=== PATIENT | male | born 1960 | race African-American/Black ===

== ENCOUNTER 2016-12-14 14:25 | Inpatient (IN) | payer OTHER ==
[2016-12-14 15:51] VITALS: BMI 32.1
--- NOTE | 2016-12-14 17:21 | HP ---
CIWA Score - CIWA Score Nausea/Vomitin-Mild Nausea/No Vomiting Muscle Tremors: 4-Moderate,w/Arms Extend Anxiety: 4-Mod. Anxious/Guarded Agitation: 4-Moderately Restless Paroxysmal Sweats: 1-Minimal Palms Moist Orientation: 0-Oriented Tacttile Disturbances: 0-None Auditory Disturbances: 0-None Visual Disturbances: 0-None Headache: 1-Very Mild CIWA-Ar Total Score: 15 Admission ROS S - HPI Chief Complaint: WITHDRAWAL SX Allergies/Adverse Reactions: Allergies Allergy/AdvReac Type Severity Reaction Status Date / Time Penicillins Allergy Severe Rash Verified 12/14/16 16:25 History of Present Illness: 55 YEARS OLD MALE WITH LONG HISTORY OF ALCOHOL COCAINE NICOTINE DEPENDENCE HAS HYPERTENSION, LEFT EYE POOR VISION X 2 YEARS, RIGHT KNEE INJURY X 2008, AMBULATE WITH CANE, DIABETES II AND DEPRESSION IS ADMITTED TO DETOX Exam Limitations: No Limitations - Ebola screening Have you traveled outside of the country in the last 21 days: No Have you had contact with anyone from an Ebola affected area: No Have you been sick,other than usual withdrawal symptoms: No Do you have a fever: No - Review of Systems Constitutional: Changes in sleep, Weight Stable EENT: reports: Blurred Vision (LEFT EYE POOR VISION), Dental Problems (UPPER DENTURE MISSING) Respiratory: reports: No Symptoms reported Cardiac: reports: No Symptoms Reported GI: reports: Nausea, Poor Fluid Intake, Abdominal cramping : reports: No Symptoms Reported Musculoskeletal: reports: Joint Pain (RIGHT KNEE), Muscle Weakness (RIGHT LEG) Integumentary: reports: No Symptoms Reported Neuro: reports: Tremors Endocrine: reports: No Symptoms Reported Hematology: reports: No Symptoms Reported Psychiatric: reports: Judgement Intact, Orientated x3, Anxious, Depressed Other Systems: Reviewed and Negative Patient History - Patient Medical History Hx Anemia: No Hx Asthma: No Hx Chronic Obstructive Pulmonary Disease (COPD): Yes Hx Cancer: No Hx Cardiac Disorders: No Hx Congestive Heart Failure: No Hx Hypertension: Yes Hx Hypercholesterolemia: No Hx Pacemaker: No HX Cerebrovascular Accident: No Hx Seizures: No Hx Dementia: No Hx Diabetes: Yes (Type II) Hx Gastrointestinal Disorders: No Hx Liver Disease: No Hx Genitourinary Disorders: No Hx Sexually Transmitted Disorders: No Hx Renal Disease (ESRD): No Hx Thyroid Disease: No Hx Human Immunodeficiency Virus (HIV): No Hx Hepatitis C: No Hx Depression: Yes Hx Suicide Attempt: No Hx Bipolar Disorder: No Hx Schizophrenia: No - Patient Surgical History Past Surgical History: Yes Hx Neurologic Surgery: No Hx Cataract Extraction: No Hx Cardiac Surgery: No Hx Lung Surgery: No Hx Breast Surgery: No Hx Breast Biopsy: No Hx Abdominal Surgery: No Hx Appendectomy: No Hx Cholecystectomy: No Hx Genitourinary Surgery: No Hx Orthopedic Surgery: Yes (R knee patellar repair.) Other Surgical History: L shoulder sx from [facility] Anesthesia Reaction: No - PPD History Previous Implant?: Yes Documented Results: Negative w/o proof Implanted On Prior [facility] Admission?: No PPD to be Administered?: Yes - Smoking Cessation Smoking history: Current every day smoker Have you smoked in the past 12 months: Yes Aproximately how many cigarettes per day: 20 Cigars Per Day: 0 Hx Chewing Tobacco Use: No Initiated information on smoking cessation: Yes 'Breaking Loose' booklet given: 12/14/16 - Substance & Tx. History Hx Alcohol Use: Yes Hx Substance Use: Yes Substance Use Type: Alcohol, Cocaine Hx Substance Use Treatment: No - Substances Abused Alcohol Route: Oral Frequency: Daily Amount used: FIFTH OF VODKA Age of first use: 16 Date of Last Use: 12/13/16 Cocaine Route: Inhalation Frequency: Daily Amount used: $200 Age of first use: 16 Date of Last Use: 12/13/16 Family Disease History - Family Disease History Family Disease History: Heart Disease: Mother (), Other: Father ( ), Mother, Brother (NO CONTACT), Sister (NO SISTER) Admission Physical Exam S - Vital Signs Vital Signs: Vital Signs - 24 hr 12/14/16 15:47 Temperature 98 F Pulse Rate 90 Respiratory 20 Rate Blood Pressure 163/102 - Physical General Appearance: Yes: Appropriately Dressed, Mild Distress, Obese, Tremorous , Irritable, Sweating, Anxious HEENTM: Yes: Hearing grossly Normal, Normal ENT Inspection, Normocephalic, Normal Voice Respiratory: Yes: Chest Non-Tender, No Respiratory Distress, No Accessory Muscle Use, Hyperresonant Neck: Yes: Supple, Trachea in good position Breast: Yes: Breasts Symetrical Cardiology: Yes: Regular Rhythm, S1, S2, Tachycardia Abdominal: Yes: Non Tender, Soft Genitourinary: Yes: Within Normal Limits Back: Yes: Normal Inspection Musculoskeletal: Yes: full range of Motion, Gait Steady, Muscle Pain (RIGHT KNEE ) Extremities: Yes: Normal Inspection, Non-Tender, Tremors Neurological: Yes: Fully Oriented, Alert, Motor Strength 5/5, Normal Response, Depressed Affect Integumentary: Yes: Warm Lymphatic: Yes: Within Normal Limits - Diagnostic (1) Alcohol dependence with uncomplicated withdrawal Current Visit: Yes Status: Acute (2) Hypertension Current Visit: Yes Status: Chronic Qualifiers: Hypertension type: essential hypertension Qualified Code(s): I10 - Essential (primary) hypertension (3) Blurred vision, left eye Current Visit: Yes Status: Chronic (4) Diabetes mellitus type II, controlled Current Visit: Yes Status: Chronic Qualifiers: Diabetes mellitus complication status: with unspecified complications Diabetes mellitus watermaster insulin use: without watermaster use Qualified Code(s): E11.8 - Type 2 diabetes mellitus with unspecified complications (5) Use of cane as ambulatory aid Current Visit: Yes Status: Chronic (6) Depression (emotion) Current Visit: Yes Status: Suspected Qualifiers: Depression Type: dysthymia Qualified Code(s): F34.1 - Dysthymic disorder (7) Right knee injury Current Visit: Yes Status: Chronic Qualifiers: Encounter type: sequela Qualified Code(s): S89.91XS - Unspecified injury of right lower leg, sequela (8) COPD (chronic obstructive pulmonary disease) Current Visit: Yes Status: Chronic Qualifiers: COPD type: emphysema Emphysema type: unspecified Qualified Code( s): J43.9 - Emphysema, unspecified Cleared for Admission S - Detox or Rehab [facility] Level of Care: Medically Managed Detox Regimen/Protocol: Librium [facility] Breath Alcohol Content Breath Alcohol Content: 0 Urine Drug Screen - Results Drug Screen Negative: No Urine Drug Screen Results: JON-Cocaine
[2016-12-14] MEDS ORDERED: ACETAMINOPHEN 325 MG TABLET (FP) PO PRN (17:26)
[2016-12-14] MEDS ORDERED: IBUPROFEN 400 MG TABLET (FP) PO PRN (17:26)
[2016-12-14] MEDS ORDERED: NICOTINE POLACRILEX 4 MG GUM BC PRN (17:26)
[2016-12-14] MEDS ORDERED: P-EPHED 60MG/TRIPROLIDI 2.5MG TABLET PO PRN (17:26)
[2016-12-14] MEDS ORDERED: MAGNESIUM HYDROX 2400MG/30ML ORAL SUSPENSION 30 ML CUP PO PRN (17:26)
[2016-12-14] MEDS ORDERED: guaiFENesin/D-METHORPHAN HB 10 ML UNIT-DOSE CUPS PO PRN (17:26)
[2016-12-14] MEDS ORDERED: MENTHOL/PHENOL 1 EACH UD MM PRN (17:26)
[2016-12-14] MEDS ORDERED: diphenhydrAMINE HCL 50 MG CAPSULE PO PRN (17:26)
[2016-12-14] MEDS ORDERED: MAGNESIUM CITRATE 300 ML BOTTLE PO PRN (17:26)
[2016-12-14] MEDS ORDERED: hydrOXYzine PAMOATE 50 MG CAPSULE (FP) PO PRN (17:26)
[2016-12-14] MEDS ORDERED: MAG HYDROX/AL HYDROX/SIMETH 30 ML UNIT-DOSE CUP PO PRN (17:26)
[2016-12-14] MEDS ORDERED: LOPERAMIDE HCL 2 MG CAPSULE PO PRN (17:26)
[2016-12-14] MEDS ORDERED: chlordiazePOXIDE HCL 25 MG CAPSULE PO PRN (17:26)
[2016-12-14] MEDS ORDERED: ALBUTEROL SO4 2.5/IPRATROPIUM 0.5 INH SOL 3 ML VIAL.NEB. NEB PRN (17:30)
[2016-12-14] MEDS ORDERED: ALBUTEROL SO4 6.7 GM HFA INHALER IH PRN (17:30)
[2016-12-14] MEDS: RAMIPRIL 5 MG CAPSULE (FP) PO SCH (19:34)
[2016-12-14] MEDS: INSULIN SLIDING SCALE (NOVOLOG) 1 VIAL SQ SCH (22:28)
[2016-12-14] MEDS: THIAMINE HCL 100 MG TABLET (FP) PO SCH (22:28)
[2016-12-14] MEDS: chlordiazePOXIDE HCL 25 MG CAPSULE PO SCH (22:28)
[2016-12-14] MEDS: BUDESONIDE/FORMETEROL FUMARATE 80/4.5 mcg INHALER IH SCH (22:30)
[2016-12-15] MEDS: chlordiazePOXIDE HCL 25 MG CAPSULE PO SCH ×4 (05:44→22:24)
[2016-12-15] MEDS: INSULIN SLIDING SCALE (NOVOLOG) 1 VIAL SQ SCH ×3 (06:25→16:42)
[2016-12-15 09:45] LABS: MCH 26.5 pg (25.7-33.7); MCHC 32.3 g/dl (32.0-35.9); MEAN CELL VOLUME 82.1 fl (80-96); MEAN PLT VOLUME 8.5 fl (7.5-11.1); PLATELET COUNT 184 K/MM3 (134-434); RDW 14.4 % (11.9-15.9); WHITE BLOOD COUNT 5.6 K/mm3 (4.0-10.0)
[2016-12-15 10:03] LABS: ALBUMIN 2.9 g/dl (3.4-5.0); ALK PHOS 92 U/L (45-117); ANION GAP 9 (8-16); BILIRUBIN,TOTAL 0.6 mg/dL (0.2-1.0); CALCIUM 8.7 mg/dL (8.5-10.1); CO2 28 mmol/L (21-32); CREATININE 0.8 mg/dL (0.7-1.3); GLUCOSE,RANDOM 169 mg/dL (74-106); SGOT/AST 31 U/L (15-37); SGPT/ALT 51 U/L (12-78); TOT PROT 5.8 g/dl (6.4-8.2)
--- NOTE | 2016-12-15 10:24 | EKG ---
Test Reason : Blood Pressure : / mmHG Vent. Rate : 087 BPM Atrial Rate : 087 BPM P-R Int : 136 ms QRS Dur : 080 ms QT Int : 378 ms P-R-T Axes : 066 033 047 degrees QTc Int : 454 ms NORMAL SINUS RHYTHM POSSIBLE LEFT ATRIAL ENLARGEMENT BORDERLINE ECG NO PREVIOUS ECGS AVAILABLE Confirmed by MARLENE GARRETT, KB ([id number]) on 12/15/2016 10:23:59 AM Referred By: Devante Vazquez Confirmed By:KB ROSARIO MD
[2016-12-15] MEDS: BUDESONIDE/FORMETEROL FUMARATE 80/4.5 mcg INHALER IH SCH ×2 (10:30→22:23)
[2016-12-15] MEDS: PRENATAL VITAMINS W/ FOLIC ACID TABLET (FP) PO SCH ×2 (10:31→10:47)
[2016-12-15] MEDS: prednisoLONE ACETATE 1% OPHTH SUSP 5 ML BOTTLE OD SCH ×3 (10:32→21:21)
[2016-12-15] MEDS: RAMIPRIL 5 MG CAPSULE (FP) PO SCH ×2 (10:32→10:47)
[2016-12-15] MEDS: NICOTINE 21 MG/24 HOURS TOPICAL PATCH TD SCH ×2 (10:32→10:55)
[2016-12-15] MEDS ORDERED: ARTIFICIAL TEARS (POLYVINYL ALCOHOL 1.4%) OPTH DROPS OU PRN (12:49)
--- NOTE | 2016-12-15 12:57 | PN ---
S CIWA - CIWA Score Nausea/Vomitin-No Nausea/No Vomiting Muscle Tremors: 2 Anxiety: 5 Agitation: 4-Moderately Restless Paroxysmal Sweats: 3 Orientation: 0-Oriented Tacttile Disturbances: 3-Moderate Itch/Numb/Burn Auditory Disturbances: 0-None Visual Disturbances: 0-None Headache: 3-Moderate CIWA-Ar Total Score: 20 S Progress Note (SOAP) Subjective: Body Aches, Anxious, H/A, Sweating, Fatigue. Objective: PT. A & O X 3, OBSERVED AMBULATING ON UNIT. NO ACUTE DISTRESS. PT. DENIES CHEST PAIN. 12/15/16 12:53 Vital Signs Temperature 96.9 F L 12/15/16 10:42 Pulse Rate 74 12/15/16 10:42 Respiratory Rate 18 12/15/16 10:42 Blood Pressure 158/94 12/15/16 10:42 O2 Sat by Pulse Oximetry (%) Laboratory Tests 12/14/16 12/15/16 12/15/16 21:35 05:46 07:00 WBC 5.6 RBC 5.43 Hgb 14.4 Hct 44.6 MCV 82.1 MCH 26.5 MCHC 32.3 RDW 14.4 Plt Count 184 MPV 8.5 Sodium Potassium Chloride Carbon Dioxide Anion Gap BUN Creatinine Creat Clearance w eGFR POC Glucometer 132 143 Random Glucose Calcium Total Bilirubin AST ALT Alkaline Phosphatase Total Protein Albumin RPR Titer 12/15/16 12/15/16 12/15/16 07:00 07:00 10:54 WBC RBC Hgb Hct MCV MCH MCHC RDW Plt Count MPV Sodium 140 Potassium 3.6 Chloride 103 Carbon Dioxide 28 Anion Gap 9 BUN 14 Creatinine 0.8 Creat Clearance w eGFR > 60 POC Glucometer 172 Random Glucose 169 H Calcium 8.7 Total Bilirubin 0.6 AST 31 ALT 51 Alkaline Phosphatase 92 Total Protein 5.8 L Albumin 2.9 L RPR Titer Nonreactive LABS NOTED. UA RESULTS PENDING. 12/15/16 12:56 Assessment: 12/15/16 12:54 WITHDRAWAL SYMPTOMS. Plan: CONTINUE DETOX. PER PHARMACIST (DAIJA Puga) AT PATIENT'S PHARMACY ([facility], [place] , [place] PATIENT PRESCRIBED ATROPINE 1 % SOLUTION EYE DROPS, 1 DROP TO LEFT EYE DAILY IN ADDITION TO PREDNISOLONE 1 % DROPS. PATIENT ALSO PRESCRIBED AMLODIPINE , 5 MG PO DAILY. BOTH MEDICATIONS ORDERED.
--- NOTE | 2016-12-15 14:22 | CONSULT ---
[facility] Psychiatric Consult - Data Date of interview: 12/15/16 Admission source: [facility] Identifying data: Patient is approached,at bedside,for psychiatric evaluation.Found to be hostile and resistive to care." I don't want to talk to psychiatrists or nobody (sic).Leave me alone." Nursing staff is made aware.
[2016-12-15] MEDS: amLODIPine BESYLATE 5 MG TABLET (FP) PO SCH (15:23)
[2016-12-15] MEDS: ATROPINE SO4 1% OPHTH SOLN 5 ML BOTTLE OS SCH ×2 (21:21→22:47)
[2016-12-15] MEDS: THIAMINE HCL 100 MG TABLET (FP) PO SCH (22:23)
[2016-12-16] MEDS: chlordiazePOXIDE HCL 25 MG CAPSULE PO SCH ×3 (06:21→17:48)
[2016-12-16] MEDS: INSULIN SLIDING SCALE (NOVOLOG) 1 VIAL SQ SCH ×2 (06:59→17:50)
[2016-12-16] MEDS: amLODIPine BESYLATE 5 MG TABLET (FP) PO SCH (09:27)
[2016-12-16] MEDS: PRENATAL VITAMINS W/ FOLIC ACID TABLET (FP) PO SCH (09:27)
[2016-12-16] MEDS: RAMIPRIL 5 MG CAPSULE (FP) PO SCH (09:27)
[2016-12-16] MEDS: ATROPINE SO4 1% OPHTH SOLN 5 ML BOTTLE OS SCH (09:28)
[2016-12-16] MEDS: prednisoLONE ACETATE 1% OPHTH SUSP 5 ML BOTTLE OD SCH ×2 (09:28→22:34)
[2016-12-16] MEDS: NICOTINE 21 MG/24 HOURS TOPICAL PATCH TD SCH (09:30)
[2016-12-16] MEDS: BUDESONIDE/FORMETEROL FUMARATE 80/4.5 mcg INHALER IH SCH ×3 (10:09→22:56)
--- NOTE | 2016-12-16 13:08 | PN ---
[facility] CIWA - CIWA Score Nausea/Vomitin-No Nausea/No Vomiting Muscle Tremors: 3 Anxiety: 5 Agitation: 4-Moderately Restless Paroxysmal Sweats: No Perspiration Orientation: 0-Oriented Tacttile Disturbances: 3-Moderate Itch/Numb/Burn Auditory Disturbances: 0-None Visual Disturbances: 0-None Headache: 3-Moderate CIWA-Ar Total Score: 18 [facility] Progress Note (SOAP) Subjective: Body Aches, Anxious, H/A, Interrupted sleep. Objective: PT. A & O X 3, OBSERVED AMBULATING ON UNIT. NO ACUTE DISTRESS. PT. DENIES CHEST PAIN. 12/16/16 13:05 Vital Signs Temperature 97.5 F L 12/16/16 10:20 Pulse Rate 78 12/16/16 10:20 Respiratory Rate 18 12/16/16 10:20 Blood Pressure 161/87 12/16/16 10:20 O2 Sat by Pulse Oximetry (%) Laboratory Tests 12/14/16 12/14/16 12/15/16 16:40 21:35 05:46 WBC RBC Hgb Hct MCV MCH MCHC RDW Plt Count MPV Sodium Potassium Chloride Carbon Dioxide Anion Gap BUN Creatinine Creat Clearance w eGFR POC Glucometer 135 132 143 Random Glucose Calcium Total Bilirubin AST ALT Alkaline Phosphatase Total Protein Albumin RPR Titer 12/15/16 12/15/16 12/15/16 07:00 07:00 07:00 WBC 5.6 RBC 5.43 Hgb 14.4 Hct 44.6 MCV 82.1 MCH 26.5 MCHC 32.3 RDW 14.4 Plt Count 184 MPV 8.5 Sodium 140 Potassium 3.6 Chloride 103 Carbon Dioxide 28 Anion Gap 9 BUN 14 Creatinine 0.8 Creat Clearance w eGFR > 60 POC Glucometer Random Glucose 169 H Calcium 8.7 Total Bilirubin 0.6 AST 31 ALT 51 Alkaline Phosphatase 92 Total Protein 5.8 L Albumin 2.9 L RPR Titer Nonreactive 12/15/16 10:54 WBC RBC Hgb Hct MCV MCH MCHC RDW Plt Count MPV Sodium Potassium Chloride Carbon Dioxide Anion Gap BUN Creatinine Creat Clearance w eGFR POC Glucometer 172 Random Glucose Calcium Total Bilirubin AST ALT Alkaline Phosphatase Total Protein Albumin RPR Titer LABS NOTED. UA RESULTS PENDING. 12/16/16 13:10 Assessment: 12/16/16 13:06 WITHDRAWAL SYMPTOMS. Plan: CONTINUE DETOX.
[2016-12-16] MEDS ORDERED: INSULIN (NOVOLOG) ASPART 100 UNITS/ML 10ML VIAL ONE (17:04)
[2016-12-16] MEDS: THIAMINE HCL 100 MG TABLET (FP) PO SCH (22:34)
[2016-12-16] MEDS: chlordiazePOXIDE 5 MG CAPSULE PO SCH (22:34)
[2016-12-17] MEDS: INSULIN SLIDING SCALE (NOVOLOG) 1 VIAL SQ SCH ×2 (06:11→17:39)
[2016-12-17] MEDS: chlordiazePOXIDE 5 MG CAPSULE PO SCH ×3 (06:11→17:39)
[2016-12-17] MEDS ORDERED: ATROPINE SO4 1% OPHTH SOLN 5 ML BOTTLE OS SCH (07:00)
[2016-12-17] MEDS: amLODIPine BESYLATE 5 MG TABLET (FP) PO SCH (10:29)
[2016-12-17] MEDS: prednisoLONE ACETATE 1% OPHTH SUSP 5 ML BOTTLE OD SCH ×2 (10:29→23:15)
[2016-12-17] MEDS: PRENATAL VITAMINS W/ FOLIC ACID TABLET (FP) PO SCH (10:30)
[2016-12-17] MEDS: RAMIPRIL 5 MG CAPSULE (FP) PO SCH (10:30)
[2016-12-17] MEDS: BUDESONIDE/FORMETEROL FUMARATE 80/4.5 mcg INHALER IH SCH ×2 (10:31→23:10)
[2016-12-17] MEDS: NICOTINE 21 MG/24 HOURS TOPICAL PATCH TD SCH (10:31)
[2016-12-17] MEDS ORDERED: amLODIPine BESYLATE 5 MG TABLET (FP) PO ONE (11:44)
--- NOTE | 2016-12-17 11:47 | PN ---
[facility] Progress Note (SOAP) Subjective: Body Aches, Anxious, Sweating. Objective: PT. A & O X 3, OBSERVED AMBULATING ON UNIT. NO ACUTE DISTRESS. 12/17/16 11:42 Vital Signs Temperature 98.2 F 12/17/16 11:18 Pulse Rate 85 12/17/16 11:18 Respiratory Rate 18 12/17/16 11:18 Blood Pressure 161/72 12/17/16 11:18 O2 Sat by Pulse Oximetry (%) Laboratory Tests 12/14/16 12/14/16 12/15/16 16:40 21:35 05:46 WBC RBC Hgb Hct MCV MCH MCHC RDW Plt Count MPV Sodium Potassium Chloride Carbon Dioxide Anion Gap BUN Creatinine Creat Clearance w eGFR POC Glucometer 135 132 143 Random Glucose Calcium Total Bilirubin AST ALT Alkaline Phosphatase Total Protein Albumin RPR Titer 12/15/16 12/15/16 12/15/16 07:00 07:00 07:00 WBC 5.6 RBC 5.43 Hgb 14.4 Hct 44.6 MCV 82.1 MCH 26.5 MCHC 32.3 RDW 14.4 Plt Count 184 MPV 8.5 Sodium 140 Potassium 3.6 Chloride 103 Carbon Dioxide 28 Anion Gap 9 BUN 14 Creatinine 0.8 Creat Clearance w eGFR > 60 POC Glucometer Random Glucose 169 H Calcium 8.7 Total Bilirubin 0.6 AST 31 ALT 51 Alkaline Phosphatase 92 Total Protein 5.8 L Albumin 2.9 L RPR Titer Nonreactive 12/15/16 12/16/16 10:54 16:24 WBC RBC Hgb Hct MCV MCH MCHC RDW Plt Count MPV Sodium Potassium Chloride Carbon Dioxide Anion Gap BUN Creatinine Creat Clearance w eGFR POC Glucometer 172 207 Random Glucose Calcium Total Bilirubin AST ALT Alkaline Phosphatase Total Protein Albumin RPR Titer LABS NOTED. UA RESULTS PENDING. 12/17/16 11:45 Assessment: 12/17/16 11:43 WITHDRAWAL SYMPTOMS. Plan: CONTINUE DETOX. AMLODIPINE, 5 MG PO X 1 NOW. INCREASE DAILY AMLODIPINE DOSE TO 10 MG PO DAILY.
[2016-12-17 22:18] VITALS: BP 137/79; PULSE 97; TEMP 98.8
[2016-12-17] MEDS: THIAMINE HCL 100 MG TABLET (FP) PO SCH (23:10)
[2016-12-17] MEDS: chlordiazePOXIDE HCL 10 MG CAPSULE PO SCH (23:10)
[2016-12-18] MEDS ORDERED: ATROPINE SO4 1% OPHTH SOLN 5 ML BOTTLE OS SCH (06:00)
[2016-12-18] MEDS: chlordiazePOXIDE HCL 10 MG CAPSULE PO SCH ×2 (06:33→10:09)
[2016-12-18] MEDS: INSULIN SLIDING SCALE (NOVOLOG) 1 VIAL SQ SCH (06:35)
[2016-12-18] MEDS: prednisoLONE ACETATE 1% OPHTH SUSP 5 ML BOTTLE OD SCH (08:28)
[2016-12-18] MEDS ORDERED: amLODIPine BESYLATE 10 MG TABLET (FP) PO SCH (10:00)
[2016-12-18] MEDS: RAMIPRIL 5 MG CAPSULE (FP) PO SCH (10:08)
[2016-12-18] MEDS: NICOTINE 21 MG/24 HOURS TOPICAL PATCH TD SCH (10:09)
[2016-12-18] MEDS: BUDESONIDE/FORMETEROL FUMARATE 80/4.5 mcg INHALER IH SCH (10:09)
[2016-12-18] MEDS: PRENATAL VITAMINS W/ FOLIC ACID TABLET (FP) PO SCH (10:09)
--- NOTE | 2016-12-18 20:34 | DS ---
[facility] Detox Discharge Summary Admission Date: 12/14/16 Discharge Date: 12/18/16 - History Present History: Alcohol Dependence Additional Comments: PT. ADVISED TO FOLLOW-UP WITH OUTPATIENT 12-STEP / AA SUPPORT GROUP PROGRAM FOR AFTER CARE. PATIENT ADVISED TO FOLLOW-UP WITH HIS OPTHALMOLOGIST AT [facility] (PT. UNABLE TO RECALL OPTHALMOLOGIST'S NAME AT THIS TIME) FOR HISTORY OF EYE DISORDER AFFECTING LEFT EYE. PATIENT WAS DISCHARGED FROM DETOX UNIT IN STABLE MEDICAL CONDITION. Pertinent Past History: COPD (Emphysema), History of Left Eye Disorder, HTN, Type II DM, Use of Cane as Ambulatory Aid, History of Right Knee Injury. - Physical Exam Results Vital Signs: Vital Signs Temperature 98.8 F 12/17/16 22: Pulse Rate 97 H 12/17/16 22: Respiratory Rate 18 12/18/16 00:30 Blood Pressure 137/79 12/17/16 22:17 O2 Sat by Pulse Oximetry (%) Pertinent Admission Physical Exam Findings: WITHDRAWAL SYMPTOMS. Laboratory Tests 12/14/16 12/14/16 12/15/16 16:40 21:35 05:46 WBC RBC Hgb Hct MCV MCH MCHC RDW Plt Count MPV Sodium Potassium Chloride Carbon Dioxide Anion Gap BUN Creatinine Creat Clearance w eGFR POC Glucometer 135 132 143 Random Glucose Calcium Total Bilirubin AST ALT Alkaline Phosphatase Total Protein Albumin RPR Titer 12/15/16 12/15/16 12/15/16 07:00 07:00 07:00 WBC 5.6 RBC 5.43 Hgb 14.4 Hct 44.6 MCV 82.1 MCH 26.5 MCHC 32.3 RDW 14.4 Plt Count 184 MPV 8.5 Sodium 140 Potassium 3.6 Chloride 103 Carbon Dioxide 28 Anion Gap 9 BUN 14 Creatinine 0.8 Creat Clearance w eGFR > 60 POC Glucometer Random Glucose 169 H Calcium 8.7 Total Bilirubin 0.6 AST 31 ALT 51 Alkaline Phosphatase 92 Total Protein 5.8 L Albumin 2.9 L RPR Titer Nonreactive 12/15/16 12/16/16 10:54 16:24 WBC RBC Hgb Hct MCV MCH MCHC RDW Plt Count MPV Sodium Potassium Chloride Carbon Dioxide Anion Gap BUN Creatinine Creat Clearance w eGFR POC Glucometer 172 207 Random Glucose Calcium Total Bilirubin AST ALT Alkaline Phosphatase Total Protein Albumin RPR Titer LABS NOTED. - Treatment Hospital Course: Detox Protocol Followed, Detoxed Safely, Responded well, Discharged Condition Good Patient has Accepted a Rehab Referral to: NO. PT. ADVISED TO FOLLOW-UP WITH LOCAL 12-STEP/AA OUTPATIENT FOR AFTERCARE - Medication Discharge Medications: Ambulatory Orders Atropine 1% Ophth. Solution - [(None)] 1 drop OS DAILY #1 bottle 12/18/16 Metformin Xr [Glucophage *Xr* -] 500 mg PO BID #60 mg 12/18/16 Prednisolone 1% Ophthalmic [Pred Forte 1% -] 5 ml OS BID #1 bottle 12/18/16 Ramipril [Altace] 10 mg PO DAILY #30 mg 12/18/16 - Diagnosis (1) Alcohol dependence with uncomplicated withdrawal Status: Acute (2) Blurred vision, left eye Status: Chronic (3) COPD (chronic obstructive pulmonary disease) Status: Chronic Qualifiers: COPD type: emphysema Emphysema type: unspecified Qualified Code( s): J43.9 - Emphysema, unspecified (4) Diabetes mellitus type II, controlled Status: Chronic Qualifiers: Diabetes mellitus complication status: with unspecified complications Diabetes mellitus chcf insulin use: without chcf use Qualified Code(s): E11.8 - Type 2 diabetes mellitus with unspecified complications; Z79.4 - senior living (current) use of insulin (5) Hypertension Status: Chronic Qualifiers: Hypertension type: essential hypertension Qualified Code(s): I10 - Essential (primary) hypertension (6) Right knee injury Status: Chronic Qualifiers: Encounter type: sequela Qualified Code(s): S89.91XS - Unspecified injury of right lower leg, sequela (7) Use of cane as ambulatory aid Status: Chronic (8) Depression (emotion) Status: Suspected Qualifiers: Depression Type: dysthymia Qualified Code(s): F34.1 - Dysthymic disorder - AMA Did Patient Leave Against Medical Advice: No
== END 2016-12-18 09:50 | disposition home or self-care (01) | DRG 775 ==
LOC: YASAS 14:25 → Y3N 17:50
PROVIDERS: ADMIT Internal Medicine; ATTEND Internal Medicine
PROC: HZ2ZZZZ Detoxification Services for Substance Abuse Treatment (ICD-10-PCS; principal; 2016-12-14)
DX: F10.230 Alcohol dependence with withdrawal, uncomplicated (principal); F17.210 Nicotine dependence, cigarettes, uncomplicated; F34.1 Dysthymic disorder; I10 Essential (primary) hypertension; E11.8 Type 2 diabetes mellitus with unspecified complications; Z79.84 Long term (current) use of oral hypoglycemic drugs; J43.9 Emphysema, unspecified; R26.89 Other abnormalities of gait and mobility; Z99.89 Dependence on other enabling machines and devices; S89.91XS Unspecified injury of right lower leg, sequela
CPT/HCPCS: 36415; 80053; 85027; 86593; 93005; 93010